=== PATIENT | male | born 1995 | race African-American/Black ===

== ENCOUNTER 2017-04-08 18:27 | Inpatient (IN) | payer MEDICAID ==
[~2017-04-08] VITALS: Ht 177.8 cm; Wt 72.1 kg
[2017-04-08] MEDS ORDERED: LORazepam 2 MG TABLET PO PRN (21:45)
[2017-04-08] MEDS ORDERED: HALOPERIDOL 5 MG TABLET PO PRN (21:45)
[2017-04-09 00:41] VITALS: BP 126/77
[2017-04-09 06:22] LABS: GLUCOSE,POINT OF CARE 98 MG/DL (70-110)
[2017-04-09 08:37] LABS: BASOPHILS % (AUTO) 0.3 % (0.0-2.0); EOSINOPHILS % (AUTO) 2.1 % (1.0-6.0); HEMATOCRIT 47.1 % (41-53); HEMOGLOBIN 15.9 g/dL (13.5-17.5); LYMPHOCYTES # (AUTO) 1.8 K/uL (1.0-4.8); LYMPHOCYTES % (AUTO) 22.2 % (22.0-44.0); MEAN CORPUSCULAR HEMOGLOBIN 31.5 pg (26.0-34.0); MEAN CORPUSCULAR HGB CONC 33.9 G/dL (31.0-37.0); MEAN CORPUSCULAR VOLUME 93 fL (80-100); MONOCYTES # (AUTO) 0.5 K/uL (0.1-1.0); MONOCYTES % (AUTO) 6.8 % (2.0-9.0); NEUTROPHILS # (AUTO) 5.6 K/uL (1.8-7.7); NEUTROPHILS % (AUTO) 68.6 % (40.0-70.0); PLATELET COUNT (AUTO) 199 K/uL (150-450); RED BLOOD CELL COUNT(AUTO) 5.06 MIL/uL (4.50-5.90); RED CELL DISTRIBUTION WIDTH 13.5 % (11.5-14.5); WHITE BLOOD COUNT (AUTO) 8.1 K/uL (4.5-11.0)
[2017-04-09 09:28] LABS: ALANINE AMINOTRANSFERASE 30 U/L (12-78); ALBUMIN 4.2 g/dL (3.4-5.0); ANION GAP 9 mmol/L (8-16); ASPARTATE AMINOTRANSFERASE 14 U/L (15-37); BILIRUBIN,TOTAL 1.2 mg/dL (0.1-1.0); CALCIUM, TOTAL 9.2 mg/dL (8.8-10.5); CARBON DIOXIDE 27 mmol/L (22-29); CHLORIDE 102 mmol/L (98-107); CHOL/HDL RATIO 3.3 (4.2-7.3); CREATININE 1.24 mg/dL (0.60-1.30); GLOMERULAR FILTR. RATE CALC > 60 mL/min (>60); SODIUM SERUM 138 mmol/L (136-145); THYROID STIMULATING HORMONE 1.79 uIU/mL (0.36-3.74); TOTAL PROTEIN, SERUM 7.2 g/dL (6.4-8.2); UREA NITROGEN, BLOOD 17 mg/dL (7-18)
[2017-04-09 09:46] LABS: HEMOGLOBIN A1C 5.4 % (4.5-6.2)
[2017-04-09] MEDS ORDERED: MAG HYDROX/AL HYDROX/SIMETH ES 30 ML SUSPENSION UDCUP PO PRN (10:00)
[2017-04-09] MEDS ORDERED: BENZOCAINE/MENTHOL LOZENGE MM PRN (10:00)
[2017-04-09] MEDS ORDERED: BACITRACIN 28.4 GM OINTMENT TP PRN (10:00)
[2017-04-09] MEDS ORDERED: ONDANSETRON HCL 4 MG TABLET PO PRN (10:00)
[2017-04-09] MEDS ORDERED: ALBUTEROL SULFATE HFA 90 MCG/PUFF 8 GM INHALER IH PRN (10:00)
[2017-04-09] MEDS ORDERED: ACETAMINOPHEN 325 MG TABLET PO PRN (10:00)
[2017-04-09] MEDS ORDERED: IBUPROFEN 600 MG TABLET PO PRN (10:00)
[2017-04-09] MEDS ORDERED: MAGNESIUM HYDROXIDE SUSPENSION 30 ML UDCUP PO PRN (10:00)
[2017-04-09] MEDS ORDERED: LOPERAMIDE HCL 2 MG CAPSULE PO PRN (10:00)
[2017-04-09] MEDS ORDERED: CloNIDine HCL 0.1 MG TABLET PO PRN (10:00)
[2017-04-09] MEDS ORDERED: PETROLATUM,WHITE 71 GM JELLY TP PRN (10:00)
[2017-04-09 10:39] VITALS: BP 133/76
[2017-04-09 18:26] VITALS: BP 129/60
[2017-04-09 18:30] VITALS: BP 129/60
[2017-04-09] MEDS: MIRTAZAPINE 15 MG TABLET PO SCH (20:11)
[2017-04-10 06:39] VITALS: BP 111/65
[2017-04-10 08:19] VITALS: BP 102/59
[2017-04-10 16:00] VITALS: BP 111/67
[2017-04-10] MEDS: MIRTAZAPINE 15 MG TABLET PO SCH (20:23)
[2017-04-10] MEDS: ZOLPIDEM TARTRATE 10 MG TABLET PO PRN (22:22)
[2017-04-11 00:15] VITALS: BP 115/56
[2017-04-11 08:01] VITALS: BP 112/68
[2017-04-11 16:00] VITALS: BP 137/65
[2017-04-11] MEDS: MIRTAZAPINE 15 MG TABLET PO SCH (20:24)
[2017-04-12] MEDS: ZOLPIDEM TARTRATE 10 MG TABLET PO PRN (00:48)
[2017-04-12 00:52] VITALS: BP 108/54
[2017-04-12 08:58] VITALS: BP 100/60
[2017-04-12 16:27] VITALS: BP 122/72
[2017-04-12] MEDS ORDERED: MIRT30 PO (16:46)
[2017-04-12] MEDS ORDERED: MIRTAZAPINE 30 MG TABLET PO SCH (21:00)
== END 2017-04-12 19:35 | disposition home or self-care (01) | DRG 751 ==
LOC: B2S 21:45
PROVIDERS: ADMIT Psychiatry & Neurology Psychiatry; ATTEND Psychiatry & Neurology Psychiatry
DX: F33.2 Major depressive disorder, recurrent severe without psychotic features (principal); R45.851 Suicidal ideations; R45.87 Impulsiveness; F12.10 Cannabis abuse, uncomplicated; G47.00 Insomnia, unspecified; Z83.3 Family history of diabetes mellitus; Z90.49 Acquired absence of other specified parts of digestive tract; Z83.6 Family history of other diseases of the respiratory system; Z84.89 Family history of other specified conditions; Z71.51 Drug abuse counseling and surveillance of drug abuser
CPT/HCPCS: 82962; 83036; 84439; 84443